=== PATIENT | male | born 1975 | race Caucasian/White ===

== ENCOUNTER 2016-11-23 17:26 | Inpatient (IN) ==
[2016-11-23] MEDS ORDERED: NS 1,000 ML IV ONE (18:04)
[2016-11-23] MEDS ORDERED: HUMULIN R IV ONE (18:14)
[2016-11-23] MEDS ORDERED: ZOFRAN IV ONE (18:14)
[2016-11-23 18:18] LABS: ALLEN TEST YES; BE -19.6 mmoll (-3.0-3.0); BLOOD TYPE ARTERIAL; DRAW SITE L RADIAL; METHB 1.5 % (0.0-1.5); O2(CT) 22.2 mL/dL (15.0-23.0); PCO2(98.6) 22 mmHg (35-45); PO2(98.6) 108 mmHg (60-100); SAMPLE BLOOD; SAO2 98.3 % (95.0-100.0); THB 16.4 g/dL (11.5-17.4)
[2016-11-23 18:19] LABS: BASO% 0.6 % (0.0-0.8); HEMATOCRIT 47.3 % (42.0-52.0); HEMOGLOBIN 16.4 g/dL (14.0-18.0); IMM GRAN# 0.77 X1000 (0.0-0.04); IMM GRAN% 2.8 % (0.0-0.5); LYMPH# 1.03 X1000 (1.2-3.4); LYMPH% 3.8 % (20.5-51.1); MANUAL DIFF NEEDED? NO; MCH 30.4 PG (27-31); MCHC 34.7 g/dL (33-37); MCV 87.8 FL (81-99); MONO# 2.41 X1000 (0.11-0.59); MONO% 8.8 % (1.7-9.3); MPV 10.5 FL (7.4-10.4); PLT 374 X1000 (130-400); RBC 5.39 XMIL (4.7-6.1)
[2016-11-23 18:20] LABS: MODALITY ROOM AIR; pH(98.6) 7.14 (7.35-7.45)
[2016-11-23 18:35] LABS: ACETONE SERUM MODERATE (NEGATIVE)
[2016-11-23 18:38] LABS: URINE CULTURE NEEDED? NO; URINE MICRO REVIEW NEEDED? NO; URINE SOURCE CLEAN CATCH
[2016-11-23 18:40] LABS: ALBUMIN 4.1 g/dL (3.5-5.0); ALKALINE PHOSPHATASE 119 U/L (32-122); BUN 37 mg/dL (8-22); CALCIUM 9.6 mg/dL (8.8-10.2); GOT 42 U/L (10-34); GPT 29 U/L (10-44); TOTAL BILIRUBIN 0.59 mg/dL (0.20-1.00); TOTAL PROTEIN 7.7 g/dL (6.3-8.3)
[2016-11-23 18:41] LABS: BILIRUBIN URINE NEGATIVE (NEGATIVE); BLOOD URINE NEGATIVE (NEGATIVE); COLOR YELLOW; GLUCOSE URINE >1000 mg/dL (NEGATIVE); LEUKOCYTES URINE NEGATIVE (NEGATIVE); NITRITE URINE NEGATIVE (NEGATIVE); PROTEIN URINE NEGATIVE (NEGATIVE); SP GRAVITY URINE 1.018; TURBIDITY URINE CLEAR (CLEAR); UR EPITHELIAL CELLS <10 /HPF (<10); URINE BACTERIA NEGATIVE /HPF; URINE RBC <10 /HPF (<10); URINE WBC <10 /HPF (<10); UROBILINOGEN URINE NORMAL (NORMAL)
[2016-11-23 18:50] LABS: AGAP 38; CHLORIDE 81 mmol/L (98-107); POTASSIUM 5.6 mmol/L (3.5-5.1); SODIUM 129 mmol/L (136-145); TCO2 10 mmol/L (25-35)
[2016-11-23 18:52] LABS: COSMO 296
--- NOTE | 2016-11-23 19:07 | PROVIDER DOCUMENTATION ---
This chart was entered by Ga Chen Scribe, acting as scribe for Travis Schuster PA. HPI-General Adult - General Chief Complaint: High Blood Sugar Stated Complaint: HYPERGLYCEMIA Time Seen by Provider: 11/23/16 18:00 Source: patient Allergies/Adverse Reactions: Patient Allergies Allergy/AdvReac Type Severity Reaction Status Date / Time No Known Allergies Allergy Verified 11/23/16 17:45 Home Medications: Home Medication List Medication Instructions Recorded Confirmed Last Taken Type Insulin Glargine [Lantus] 30 unit SUBQ BID #3 insuln.pen 04/11/15 11/23/1611/22 Rx Hydrocodone/APAP 10 mg/325 mg 0 each PO DIRECTED 09/04/16 11/23/16 09/04/16 06:30 History [Addison-10] Insulin Aspart [Novolog Flexpen] 0 unit SQ DIRECTED 09/04/16 11/23/16 History Oxycodone HCl/Acetaminophen 1 each PO DIRECTED 09/04/16 11/23/16 11/23/16 History [Percocet 10-325 mg Tablet] - History of Present Illness -Gen Adult Nature of Presenting Problems: Pt is a 41 yom who presents to ER with CC of hyperglycemia. Pt reports that he started to feel nauseas yesterday and reports that he was unable to take his rx. Pt reports that he felt like her was hyperventilating and felt as though he was in DKA. On arrival, pt's blood glucose level was in the 600's. Location of Pain/Injury: reports: generalized Pain Radiation: reports: no radiation Quality of Pain: reports: other (DKA) Severity: reports: severe Onset/Duration: reports: 24 hours ago Timing: reports: still present Associated Symptoms: reports: loss of appetite, nausea, shortness of breath, other (hyperventilating). denies: anxiety, arm pain, back/neck pain, chest pain , constipation, cough, diaphoresis, diarrhea, dizziness, EENT symptoms, fatigue , fever/chills, genitourinary problems, headaches, heartburn, joint pain, malaise, muscle aches, sinus congestion/drainage, rash, seizure, sensory/motor loss, pain with inspiration, swelling/mass in abdomen, syncope, vomiting, weakness, trouble walking Similar Symptoms Previously?: No Recently seen or treated by another doctor?: No - Diabetes Related Context Context: reports: high blood sugar Review of Systems - Adult - REVIEW OF SYSTEMS - ADULT Constitutional: denies: chills, fever, fatique, night sweats, weight gain, weight loss Eyes: reports: no symptoms reported Ears, Nose, Mouth & Throat: reports: no symptoms reported Cardiovascular: reports: no symptoms reported Respiratory: reports: shortness of breath, other (hyperventilating). denies: chronic cough, cough, dyspnea on exertion, excessive sputum production, hemoptysis, pleurisy, wheezing Gastrointestinal: reports: nausea, poor appetite. denies: abdominal pain, hematemesis, constipation, diarrhea, difficulty swallowing, frequent heartburn, rectal bleeding, vomiting Genitourinary: reports: no symptoms reported Musculoskeletal: reports: no symptoms reported Integumentary: reports: no symptoms reported Neurological: reports: no symptoms reported Psychiatric: reports: no symptoms reported Endocrine: reports: no symptoms reported Hematologic/Lymphatic: reports: no symptoms reported Allergic/Immunologic: reports: no symptoms reported All Other Systems: Reviewed and Negative Past History - Adult - PAST MEDICAL HISTORY-ADULT Review of Records: reports: Nursing Assessment Review, Medications Reviewed Endocrine/Immune: reports: Diabetes - PRIOR SURGERIES/PROCEDURES Surgical/Procedure History: reports: orthopedic (extremity) - IMMUNIZATION STATUS Childhood Immunizations: UTD, See Nurse Assessment Flu Vaccine: See Nurse Assessment - FAMILY HISTORY Family History: reviewed, not pertinent Physical Exam-General - PHYSICAL EXAM-ADULT Initial Vital Signs Reviewed: Yes - CONSTITUTIONAL General Appearance: appears well, alert, moderate distress, anxious. negative: no apparent distress, mild distress - RESPIRATORY Respiratory: chest non-tender, lungs clear, normal breath sounds, no pleuratic chest pain, no respiratory distress, no accessory muscle use. negative: stridor , wheezing - CARDIOVASCULAR Cardiovascular: normal peripheral pulses, tachycardia. negative: regular rate, rhythm, irregularly irregular - GASTROINTESTINAL (ABDOMEN) Abdominal Exam: normal bowel sounds, non tender, soft, no organomegaly, no pulsatile mass. negative: abnormal bowel sounds, distended, tenderness - MUSCULOSKELETAL Back Exam: normal inspection, no CVA tenderness, no vertebral tenderness. negative: CVA tenderness, decreased range of motion, ecchymosis, muscle spasm, swelling, vertebral tenderness Extremity: normal range of motion, non-tender, normal gait, normal inspection, no pedal edema, no calf tenderness, normal capillary refill. negative: deformity, erythema, inflammation, pedal edema, swelling, tenderness - SKIN Integumentary: normal color, normal turgor, warm/dry. negative: abrasion(s), diaphoresis, ecchymosis, erythema, laceration(s), swelling, tenderness, warm - NEUROLOGIC Neurologic: psychology lecturer II-XII nml as tested, grossly normal, no motor/sensory deficits . negative: facial droop, focal weakness, motor weakness, sensory deficit - PSYCHIATRIC Psych/Mental Status: normal thought content, normal thought process, oriented x 3, anxious. negative: normal mood/affect Progress - PLAN OF CARE/RESULTS Progress/Plan/Lab Results: Vital Signs - 8 hr 11/23/16 17:40 Temperature 97.8 F Pulse Rate 120 H Respiratory Rate 23 Blood Pressure 133/70 O2 Sat by Pulse Oximetry 99 Laboratory Results - last 24 hr 11/23/16 11/23/16 11/23/16 17:47 17:47 18:08 WBC 27.35 H RBC 5.39 Hgb 16.4 Hct 47.3 MCV 87.8 MCH 30.4 MCHC 34.7 RDW Std Deviation 12.5 Plt Count 374 MPV 10.5 H Immature Gran % (Auto) 2.8 H Neut % (Auto) 84.0 H Lymph % (Auto) 3.8 L [place] % (Auto) 8.8 Eos % (Auto) 0.0 Baso % (Auto) 0.6 Immature Gran # (Auto) 0.77 H Neut # (Auto) 22.97 H Lymph # (Auto) 1.03 L [place] # (Auto) 2.41 H Eos # (Auto) 0.00 Baso # (Auto) 0.17 Specimen Type ARTERIAL Sample Site L RADIAL pH 7.14 L* pCO2 22 L pO2 108 H HCO3 9.6 L Base Excess -19.6 L Oxyhemoglobin 95.7 ABG O2 Sat (Calculated) 22.2 ABG O2 Saturation 98.3 ABG Carboxyhemoglobin 1.20 ABG Methemoglobin 1.5 Keo Test YES A-a O2 Difference 14.0 Total Hemoglobin 16.4 Lactate 5.20 H* Blood Gas Modality ROOM AIR FiO2 % 21.0 Sodium 129 L Potassium 5.6 H Chloride 81 L Carbon Dioxide 10 L Anion Gap 38 BUN 37 H Creatinine 1.7 H Estimated GFR/1.73 m2 44 BUN/Creatinine Ratio 22 Glucose 603 H* Calculated Osmolality 296 Calcium 9.6 Total Bilirubin 0.59 AST 42 H ALT 29 Alkaline Phosphatase 119 Total Protein 7.7 Albumin 4.1 Globulin 3.6 Albumin/Globulin Ratio 1.1 Urine Source Urine Color Urine Turbidity Urine pH Ur Specific [place] Urine Protein Ur Glucose (Stick) Ur Ketones (Stick) Urine Blood Urine Nitrite Urine Bilirubin Urobilinogen Dipstick Urine Leukocytes Urine WBC (Auto) Urine RBC (Auto) U Epithel Cells (Auto) Urine Bacteria (Auto) Acetone Level MODERATE A 11/23/16 18:33 WBC RBC Hgb Hct MCV MCH MCHC RDW Std Deviation Plt Count MPV Immature Gran % (Auto) Neut % (Auto) Lymph % (Auto) [place] % (Auto) Eos % (Auto) Baso % (Auto) Immature Gran # (Auto) Neut # (Auto) Lymph # (Auto) [place] # (Auto) Eos # (Auto) Baso # (Auto) Specimen Type Sample Site pH pCO2 pO2 HCO3 Base Excess Oxyhemoglobin ABG O2 Sat (Calculated) ABG O2 Saturation ABG Carboxyhemoglobin ABG Methemoglobin Keo Test A-a O2 Difference Total Hemoglobin Lactate Blood Gas Modality FiO2 % Sodium Potassium Chloride Carbon Dioxide Anion Gap BUN Creatinine Estimated GFR/1.73 m2 BUN/Creatinine Ratio Glucose Calculated Osmolality Calcium Total Bilirubin AST ALT Alkaline Phosphatase Total Protein Albumin Globulin Albumin/Globulin Ratio Urine Source CLEAN CATCH Urine Color YELLOW Urine Turbidity CLEAR Urine pH 5.0 Ur Specific [place] 1.018 Urine Protein NEGATIVE Ur Glucose (Stick) >1000 A Ur Ketones (Stick) 100 A Urine Blood NEGATIVE Urine Nitrite NEGATIVE Urine Bilirubin NEGATIVE Urobilinogen Dipstick NORMAL Urine Leukocytes NEGATIVE Urine WBC (Auto) <10 Urine RBC (Auto) <10 U Epithel Cells (Auto) <10 Urine Bacteria (Auto) NEGATIVE Acetone Level Orders Category Date Time Status Saline Loc NOW Care 11/23/16 18:04 Active ABG [RESP] Routine Lab 11/23/16 18:08 Completed ACETONE SERUM [CHEM] Stat Lab 11/23/16 17:47 Completed CBC WITH ELECTRONIC DIFF [HEME] Stat Lab 11/23/16 17:47 Completed COMPREHENSIVE METABOLIC PANEL [CHEM] Stat Lab 11/23/16 17:47 Completed URINALYSIS W/POSS RFLX CULT [URINALYSIS] Stat Lab 11/23/16 18:33 Completed 0.9% Sodium Chloride Inj [Ns] 1,000 ml Med 11/23/16 18:04 Active IV 999 mls/hr Insulin Human Regular [Humulin R] Med 11/23/16 18:14 Discontinued 10 unit IV NOW ONE Ondansetron [Zofran] Med 11/23/16 18:14 Discontinued 4 mg IV NOW ONE EKG [EKG] Stat Ther 11/23/16 17:43 Ordered Result Diagrams: 11/23/16 17:47 11/23/16 17:47 - CONSULTS/PCP/HOSPITALIST Notification #1 *Consult/PCP/Hospitalist*: Dr. Mann Time Discussed: 19:06 Consult Disposition: Admit Departure - Departure Time of Disposition Decision: 19:06 DIAGNOSIS: DKA (diabetic ketoacidoses) Qualifiers: Diabetes mellitus type: type 2 Diabetes mellitus complication detail: without coma Qualified Code(s): E13.10 - Other specified diabetes mellitus with ketoacidosis without coma Nausea & vomiting Qualifiers: Vomiting type: unspecified Vomiting Intractability: non-intractable Qualified Code(s): R11.2 - Nausea with vomiting, unspecified Disposition: ADMITTED INPATIENT 09 Certified Medical Emergency: Emergent Condition: Stable Referrals and Follow-Ups: None,PCP [Primary Care Provider] - Attestation - Physician/ VALE Attestation Patient care was provided by Advanced Practice Provider:: Yes Advanced Practice Provider:: Travis Schuster Advanced Practice Provider documentation review:: The Mid-level provider documentation, treatment plan and medical decision making was reviewed by the physician who agrees with all treatment and medical decision making by the MLP. The physician spent face to face time with patient:: Yes Advanced Practice Provider documentation review:: The physician spent face to face time with this patient and agrees with all MLP documentation, treatment, and medical decision making by the MLP. See provider notes for further information. This chart was documented by the indicated scribe, (Ga Chen Scribe) and accurately reflects the services I performed and decisions made by , Travis Schuster PA, as attested by the provider's signature.
[2016-11-23] MEDS: PERCOCET-10 PO PRN (19:52)
[2016-11-23] MEDS ORDERED: TYLENOL PO PRN ×2 (20:00→21:04)
[2016-11-23] MEDS ORDERED: SODIUM CHLORIDE 0.9% INJ PRN (20:00)
[2016-11-23] MEDS ORDERED: ZOFRAN IV PRN (20:00)
[2016-11-23] MEDS ORDERED: PHENERGAN IV PRN (20:00)
[2016-11-23] MEDS: NS 1,000 ML IV ONE ×3 (20:25→21:41)
[2016-11-23 20:41] LABS: URINE CULTURE NEEDED? NO; URINE MICRO REVIEW NEEDED? NO; URINE SOURCE CLEAN CATCH
[2016-11-23 20:44] LABS: UR EPITHELIAL CELLS <10 /HPF (<10); URINE BACTERIA NEGATIVE /HPF; URINE RBC <10 /HPF (<10); URINE WBC <10 /HPF (<10)
[2016-11-23 20:46] LABS: BILIRUBIN URINE NEGATIVE (NEGATIVE); BLOOD URINE NEGATIVE (NEGATIVE); COLOR YELLOW; GLUCOSE URINE >1000 mg/dL (NEGATIVE); LEUKOCYTES URINE NEGATIVE (NEGATIVE); NITRITE URINE NEGATIVE (NEGATIVE); PROTEIN URINE NEGATIVE (NEGATIVE); SP GRAVITY URINE 1.018; TURBIDITY URINE CLEAR (CLEAR); UROBILINOGEN URINE NORMAL (NORMAL)
[2016-11-23] MEDS ORDERED: MAGNESIUM SULFATE 2 GM/S.W.I. 2 GM/50 ML IVPB IV PRN (21:04)
[2016-11-23] MEDS ORDERED: D50W SYRINGE IV PRN (21:04)
[2016-11-23] MEDS ORDERED: D5 NS 1,000 ML IV SCH (21:04)
[2016-11-23] MEDS ORDERED: POTASSIUM CHLORIDE 40 MEQ in NS 250 ML IV PRN (21:04)
[2016-11-23] MEDS ORDERED: POTASSIUM CHLORIDE 20 MEQ in NS 100 ML IV PRN (21:04)
[2016-11-23] MEDS ORDERED: TYLENOL PR PRN (21:04)
[2016-11-23] MEDS ORDERED: KLOR-CON PO PRN ×2 (21:04)
[2016-11-23] MEDS ORDERED: HUMULIN R 100 UNIT in NS 99 ML IV SCH (21:04)
--- NOTE | 2016-11-23 21:16 | HISTORY AND PHYSICAL ---
CHIEF COMPLAINT: High blood sugar. PRIMARY CARE PROVIDER: An urgent care. He was unable to tell me a physician's name. HISTORY OF PRESENT ILLNESS: This is a 41-year-old male with a history of uncontrolled diabetes mellitus. He comes in today stating that he started feeling nauseated yesterday. Apparently, was unable to take his prescriptions and today started as if he were hyperventilating, thought he was going into DKA. On arrival to the ER, patient's blood glucose was in the 600s. PH, his ABG was 7.14. He will be admitted to ICU on DKA protocol. PAST MEDICAL HISTORY: 1. Diabetes mellitus type 1. 2. Chronic pain. 3. DKA. PREVIOUS SURGICAL HISTORY: Multiple back surgeries. SOCIAL HISTORY: Denies tobacco, alcohol or illicit drug use or abuse. FAMILY HISTORY: All 1st degree relatives have diabetes mellitus. Mother and father both had cardiac disease as well. ALLERGIES: No known drug allergies. MEDICATIONS: 1. Lantus 30 units subcutaneously b.i.d. 2. NovoLog FlexPen sliding scale. 3. Oxycodone 10 mg 1 p.o. as directed. 4. [place] 1 p.o. as directed. REVIEW OF SYSTEMS: Fourteen point review of systems conducted with the patient. He reported increased thirst, urination, diarrhea, nausea, vomiting, chronic back pain, denied chest pain, palpitations, fever, chills, weight gain, weight loss, cough, hematuria, hematochezia, melena. 14 point review of systems was conducted with the patient. All other systems were found to be negative. PHYSICAL EXAMINATION: VITAL SIGNS: Temperature 97.8 degrees, pulse 120, respirations 23, blood pressure 133/70. Oxygen saturation 99% on room air. GENERAL: A 41-year-old male lying in the ER stretcher, lethargic but answers all questions appropriately. Family at bedside. Oriented x3. HEENT: Head is atraumatic, normocephalic. Pupils equal, round, reactive to light. Extraocular eye movements intact. Sclerae is anicteric. Conjunctivae is pink. Oral mucosa is dry. NECK: Supple. No JVD. No thyromegaly. Trachea is midline. No cervical lymphadenopathy. CARDIAC: Regular rhythm. Sinus tachycardia on monitor. S1-S2 appreciated. No murmurs, gallops, rubs. LUNGS: Clear to auscultation bilaterally. No rhonchi, wheezes or rales. ABDOMEN: Soft, nondistended, nontender. Bowel sounds present in all 4 quadrants. Normoactive. No pulsatile mass. No organomegaly. EXTREMITIES: No clubbing, cyanosis, or edema. GENITOURINARY: Patient voids. We will place a Wooten catheter if needed for strict input and output. Otherwise deferred. NEUROLOGICAL: The patient is lethargic; however, answers all questions appropriately. He is oriented x3. Cranial nerves 2-12 are grossly intact. SKIN: Warm, dry and intact. No acute lesions or rash. DIAGNOSTIC DATA: Chest x-ray, no acute disease. LABORATORY DATA: WBC 27.35. Hemoglobin 16.3, hematocrit 47.3, platelet count 374,000. ABG: PH 7.14, pCO2 22. PO2 108. Bicarb 9.6, lactate 5.20, this was on room air. Sodium 129, potassium 5.6. Chloride 81. Carbon dioxide 10. BUN 37, creatinine 1.7. Glucose of 603. Urine greater than 1000 glucose. Ketones 100+. Acetone level moderate. ASSESSMENT AND PLAN: 1. Diabetic ketoacidosis. Fluid resuscitation was begun in the emergency room. Diabetic ketoacidosis protocol has been filled out of for further titration of fluids, treatment of electrolytes if indicated as well as titration of insulin drip. 2. Leukocytosis. This is possibly reactive; however, blood cultures were obtained along with urine culture and chest x-ray to rule out infectious etiology. We will not provide antibiotic coverage at this time. We will give fluid resuscitation and monitor. 3. Acute kidney injury. This is secondary to fluid volume depletion from diabetic ketoacidosis. Aggressive fluid bolusing was begun in the emergency room, will be continued in the intensive care unit. We will recheck laboratory data. Hopeful this will resolve. 4. Hyponatremia. This is again likely related to fluid volume depletion. We will rehydrate and recheck laboratory data. 5. Hyperkalemia. This will resolve as patient's blood sugar comes back into normal range. We will monitor laboratory data and replete potassium if needed. 6. Chronic pain. Continue patient's Percocet from home medications. 7. Nausea and vomiting. Zofran and Phenergan will be added as p.r.n. medications to patient's medication profile. Further recommendations per patient clinical course. Dictated by CARL Guillen for Wilber Mann MD cc: CARL Guillen MD
[2016-11-23 21:34] LABS: URINE CULTURE NEEDED? NO; URINE MICRO REVIEW NEEDED? NO; URINE SOURCE CATH
[2016-11-23 21:38] LABS: BILIRUBIN URINE NEGATIVE (NEGATIVE); BLOOD URINE NEGATIVE (NEGATIVE); COLOR YELLOW; GLUCOSE URINE >1000 mg/dL (NEGATIVE); LEUKOCYTES URINE NEGATIVE (NEGATIVE); NITRITE URINE NEGATIVE (NEGATIVE); PROTEIN URINE NEGATIVE (NEGATIVE); TURBIDITY URINE CLEAR (CLEAR); UR EPITHELIAL CELLS <10 /HPF (<10); URINE BACTERIA NEGATIVE /HPF; URINE RBC <10 /HPF (<10); URINE WBC <10 /HPF (<10); UROBILINOGEN URINE NORMAL (NORMAL)
[2016-11-23] MEDS: LOVENOX SUBQ SCH (21:39)
[2016-11-23] MEDS: PROTONIX IV SCH (21:39)
[2016-11-23] MEDS: NS 1,000 ML IV SCH ×2 (21:44→21:46)
[2016-11-23 21:47] LABS: UR AMPHETAMINES QUAL PRESUMPTIVE POSITIVE (NONE DETECT); UR BARBITUATES QUAL NONE DETECTED (NONE DETECT); UR BENZODIAZEPIN QUAL NONE DETECTED (NONE DETECT); UR CANNABINOIDS QUAL NONE DETECTED (NONE DETECT); UR COCAINE QUAL NONE DETECTED (NONE DETECT); UR METHADONE QUAL NONE DETECTED (NONE DETECT); UR OPIATES QUAL NONE DETECTED (NONE DETECT); UR OXYCODONE QUAL PRESUMPTIVE POSITIVE (NONE DETECT); UR PCP QUAL NONE DETECTED (NONE DETECT)
[2016-11-23 22:19] LABS: AMYLASE 27 U/L (20-200); CK PROFILE 35 U/L (24-204); LIPASE 8 U/L (13-60)
[2016-11-23 22:33] LABS: CALCIUM 8.6 mg/dL (8.8-10.2); MAGNESIUM 1.9 mg/dL (1.5-2.7); POTASSIUM 5.2 mmol/L (3.5-5.1)
[2016-11-23] MEDS: POTASSIUM CHLORIDE 10 MEQ in NS 1,000 ML IV SCH (23:00)
[2016-11-24] MEDS: NS 1,000 ML IV SCH (01:11)
[2016-11-24 02:36] LABS: ALLEN TEST YES; BE -8.2 mmoll (-3.0-3.0); BLOOD TYPE ARTERIAL; DRAW SITE R RADIAL; METHB 1.4 % (0.0-1.5); MODALITY ROOM AIR; O2(CT) 19.1 mL/dL (15.0-23.0); PCO2(98.6) 34 mmHg (35-45); PO2(98.6) 82 mmHg (60-100); SAMPLE BLOOD; SAO2 98.1 % (95.0-100.0); THB 14.2 g/dL (11.5-17.4); pH(98.6) 7.31 (7.35-7.45)
[2016-11-24 03:27] LABS: AGAP 20; BUN 35 mg/dL (8-22); CALCIUM 8.1 mg/dL (8.8-10.2); CHLORIDE 104 mmol/L (98-107); COSMO 299; MAGNESIUM 1.9 mg/dL (1.5-2.7); POTASSIUM 4.7 mmol/L (3.5-5.1); SODIUM 140 mmol/L (136-145); TCO2 16 mmol/L (25-35)
[2016-11-24] MEDS: PERCOCET-10 PO PRN ×4 (03:58→20:00)
[2016-11-24] MEDS: POTASSIUM CHLORIDE 10 MEQ in NS 1,000 ML IV SCH ×3 (04:38→13:20)
--- NOTE | 2016-11-24 05:51 | EKG Report ---
Test Performed on : 11/23/2016 5:35:25 PM Test Reason : Protocol/Re-Ordered Blood Pressure : / mmHG Vent. Rate : 120 BPM Atrial Rate : 120 BPM P-R Int : 138 ms QRS Dur : 082 ms QT Int : 328 ms P-R-T Axes : 068 075 068 degrees QTc Int : 463 ms Sinus tachycardia. Possible Left atrial enlargement Left ventricular hypertrophy Abnormal ECG No previous ECGs available Unconfirmed Result
[2016-11-24 06:29] LABS: AGAP 16; BUN 33 mg/dL (8-22); CHLORIDE 106 mmol/L (98-107); COSMO 298; MAGNESIUM 1.8 mg/dL (1.5-2.7); POTASSIUM 4.8 mmol/L (3.5-5.1); SODIUM 141 mmol/L (136-145); TCO2 19 mmol/L (25-35)
--- NOTE | 2016-11-24 06:31 | Diag Imaging Result Document ---
PROCEDURE NAME: CHEST-PORTABLE - 11/23/2016 PORTABLE CHEST: COMPARISON: Compared to 04/08/2015. FINDINGS: The lungs are well expanded. The heart is not enlarged. The vessels are not distended. No pneumonia. No pleural effusions identified. IMPRESSION: Stable chest.
[2016-11-24 10:06] LABS: ALLEN TEST YES; BE -3.9 mmoll (-3.0-3.0); BLOOD TYPE ARTERIAL; DRAW SITE R RADIAL; METHB 1.3 % (0.0-1.5); O2(CT) 17.4 mL/dL (15.0-23.0); PCO2(98.6) 36 mmHg (35-45); PO2(98.6) 80 mmHg (60-100); SAMPLE BLOOD; THB 12.9 g/dL (11.5-17.4); pH(98.6) 7.37 (7.35-7.45)
[2016-11-24 10:07] LABS: MODALITY ROOM AIR
[2016-11-24 10:24] LABS: AGAP 13; BUN 27 mg/dL (8-22); CALCIUM 7.9 mg/dL (8.8-10.2); CHLORIDE 107 mmol/L (98-107); COSMO 292; MAGNESIUM 1.8 mg/dL (1.5-2.7); SODIUM 140 mmol/L (136-145); TCO2 20 mmol/L (25-35)
[2016-11-24] MEDS ORDERED: LANTUS SUBQ ONE (13:47)
[2016-11-24] MEDS ORDERED: NEUTRA-PHOS PO ONE (13:54)
[2016-11-24] MEDS: 1/2 NS 1,000 ML IV SCH (14:32)
[2016-11-24] MEDS ORDERED: ORAJEL MAXIMUM ST 20% GEL TOP PRN (14:57)
[2016-11-24] MEDS ORDERED: VANCOMYCIN IV PER PHARMACY MISC SCH (15:00)
--- NOTE | 2016-11-24 15:54 | PROGRESS NOTE ---
DATE: 11/24/2016 SUBJECTIVE: The patient has no complaints. He denies having any abdominal pain. His blood sugars are running in the 200s and his anion gap appears to have closed. OBJECTIVE: Vital Signs: Temperature 96.8, blood pressure 113/63, heart rate 99 , respirations 12, O2 saturations 98% on room air. General: This is a middle-aged male lying in bed in no acute distress. Head: Normocephalic, atraumatic. Heart: S1, S2 normal. Regular rate and rhythm. Lungs: Clear to auscultation bilaterally. No wheezing. No rales. No rhonchi. Abdomen: Positive bowel sounds. Soft, nontender, nondistended. Extremities: No edema. No cyanosis. No calf tenderness. Neurologic: The patient is alert oriented x3. No focal neurologic deficits noted. LABS: Sodium 140, potassium 5, chloride 107, CO2 20, BUN 27, creatinine 1, glucose 235, phosphorus 2.5, magnesium 1.8. ASSESSMENT AND PLAN: 1. Diabetic ketoacidosis. Anion gap appears to have closed. We will start the patient on Lantus plus sliding scale insulin. Will also start the patient on a full liquid diet and monitor the blood sugars every 4 hours. The patient will need to be referred to primary care physician to continue to follow his blood sugars as outpatient. 2. Acute kidney injury. Resolved. Will switch the patient to half normal saline at 75 mL an hour. 3. Gastrointestinal prophylaxis. Continue on Protonix. 4. Deep vein thrombosis prophylaxis. Will continue on Lovenox. cc: Shirley Mcmanus MD MTDD
[2016-11-24] MEDS: HUMULIN R SUBQ SCH ×2 (16:00→20:01)
[2016-11-24] MEDS ORDERED: VANCOMYCIN 2,150 MG in NS 500 ML IV ONE (16:00)
[2016-11-24] MEDS: LOVENOX SUBQ SCH (20:00)
[2016-11-24] MEDS: SODIUM CHLORIDE 0.9% INJ SCH (20:00)
[2016-11-24] MEDS: PROTONIX IV SCH (20:00)
[2016-11-24] MEDS ORDERED: LANTUS SUBQ SCH (21:00)
[2016-11-25] MEDS: PERCOCET-10 PO PRN ×5 (01:01→20:18)
[2016-11-25] MEDS: 1/2 NS 1,000 ML IV SCH (04:23)
[2016-11-25] MEDS: VANCOMYCIN 1,850 MG in NS 500 ML IV SCH ×2 (04:24→16:30)
[2016-11-25 05:48] LABS: HEMATOCRIT 38.3 % (42.0-52.0); HEMOGLOBIN 13.1 g/dL (14.0-18.0); MCH 30.5 PG (27-31); MCHC 34.2 g/dL (33-37); MCV 89.1 FL (81-99); MPV 9.8 FL (7.4-10.4); RBC 4.3 XMIL (4.7-6.1)
[2016-11-25 05:58] LABS: AGAP 14; ALBUMIN 2.9 g/dL (3.5-5.0); BUN 12 mg/dL (8-22); CHLORIDE 103 mmol/L (98-107); COSMO 285; MAGNESIUM 1.7 mg/dL (1.5-2.7); POTASSIUM 3.9 mmol/L (3.5-5.1); SODIUM 140 mmol/L (136-145); TCO2 23 mmol/L (25-35)
[2016-11-25] MEDS: HUMULIN R SUBQ SCH ×4 (06:25→20:36)
[2016-11-25] MEDS: LANTUS SUBQ SCH ×2 (08:47→20:22)
--- NOTE | 2016-11-25 15:03 | PROGRESS NOTE ---
DATE: 11/25/2016 SUBJECTIVE: The patient is resting comfortably in bed. He has no complaints. OBJECTIVE: Vital Signs: Temperature 99 degrees, blood pressure 129/81, heart rate 85, respirations 24, O2 saturations 95% on room air. General: This is a middle-aged male, lying in bed, in no acute distress. Head: Normocephalic, atraumatic. Heart: S1, S2. Normal. Regular rate and rhythm. Lungs: Clear to auscultation bilaterally. No wheezes, no rales. No rhonchi. Abdomen: Positive bowel sounds. Soft, nontender, nondistended. Extremities: No edema. No cyanosis. No calf tenderness. Neurologic: The patient is alert and oriented x3. LABS: White blood cell count 16, hemoglobin 13, hematocrit 38, platelets 229,000. Sodium 140, potassium 3.9, BUN 12, creatinine 0.8, glucose 209, magnesium 1.7, phosphorus 1.6, calcium 8. ASSESSMENT AND PLAN: 1. Diabetic ketoacidosis. Resolved. 2. Uncontrolled insulin-dependent diabetes mellitus. Will continue on Levemir 35 units subcutaneous twice a day plus sliding scale insulin. 3. Acute kidney injury. Resolved. 4. Leukocytosis. The patient had 1 bottle of the blood culture that was positive, however this came back for coagulase-negative staph which is most likely a contaminant. The patient's white blood cell count is improving daily. We will continue to monitor this closely. 5. Gastrointestinal prophylaxis. Continue on Protonix. 6. Deep vein thrombosis prophylaxis. Continue on Lovenox. 7. The patient is stable for transfer to the medical floor. 8. Disposition. The patient should be stable for discharge home tomorrow. cc: Shirley Mcmanus MD
[2016-11-25] MEDS: NEUTRA-PHOS PO SCH ×2 (16:33→20:19)
[2016-11-25] MEDS: PROTONIX IV SCH (20:19)
[2016-11-25] MEDS: LOVENOX SUBQ SCH (20:19)
[2016-11-25] MEDS: SODIUM CHLORIDE 0.9% INJ SCH (20:19)
[2016-11-25] MEDS ORDERED: INSULIN PEN NEEDLES ONE (20:24)
[2016-11-26] MEDS: PERCOCET-10 PO PRN ×2 (01:02→06:34)
[2016-11-26 03:59] LABS: MANUAL DIFF NEEDED? NO
[2016-11-26 04:01] LABS: BASO% 0.9 % (0.0-0.8); HEMATOCRIT 44.8 % (42.0-52.0); HEMOGLOBIN 15.6 g/dL (14.0-18.0); IMM GRAN# 0.04 X1000 (0.0-0.04); IMM GRAN% 0.4 % (0.0-0.5); LYMPH# 1.71 X1000 (1.2-3.4); LYMPH% 17.1 % (20.5-51.1); MCHC 34.8 g/dL (33-37); MCV 88.9 FL (81-99); MONO# 1.09 X1000 (0.11-0.59); MONO% 10.9 % (1.7-9.3); MPV 9.9 FL (7.4-10.4); NEUT% 69.7 % (42.2-75.2); PLT 189 X1000 (130-400); RBC 5.04 XMIL (4.7-6.1)
[2016-11-26] MEDS: VANCOMYCIN 1,850 MG in NS 500 ML IV SCH (04:24)
[2016-11-26 05:46] VITALS: BP 173/89
[2016-11-26] MEDS: HUMULIN R SUBQ SCH (06:34)
[2016-11-26 06:53] LABS: AGAP 11; BUN 8 mg/dL (8-22); CALCIUM 9.4 mg/dL (8.8-10.2); CHLORIDE 97 mmol/L (98-107); COSMO 279; POTASSIUM 3.7 mmol/L (3.5-5.1); SODIUM 137 mmol/L (136-145); TCO2 29 mmol/L (25-35)
--- NOTE | 2016-11-27 09:28 | DISCHARGE SUMMARY ---
ADMISSION DATE: 11/23/2016 DISCHARGE DATE: 11/26/2016 FINAL DISCHARGE DIAGNOSIS 1. DKA 2. Acute kidney injury 3. Uncontrolled diabetes mellitus type 1 HOSPITAL COURSE: Mr. Alberts is a 41-year-old male with history of type 1 diabetes mellitus, chronic pain and other admissions for DKA. He came to the ED stating he was feeling nauseated and he was unable to take his prescriptions the day of or the day prior to his admission. He felt like he was hyperventilating and that he was going into DKA. In the ED his blood glucose was in the 600s, pH on his ABG was 7.14. Patient was admitted to the ICU on DKA protocol. The patient was able to get off his insulin drip. His anion gap was closed. He was started on Levemir plus sliding scale. He was advanced to a clear liquid diet. His acute kidney injury resolved. The patient was put in to be transferred to the floor over lack of beds. The patient was kept in the ICU. He is now appropriate for discharge home today. Vital signs, temperature is 97.6 degrees, heart rate 74, respirations 17, blood pressure 173/ 89, O2 is 97% on room air. DISCHARGE DIET: Diabetic. DISCHARGE MEDICATIONS: 1. [place] 10, 1 each p.o. as directed. 2. NovoLog flex Pen as per his sliding scale. 3. Lantus 35 units subcutaneous b.i.d. FOLLOW UP: Patient is being discharged home. He will need to follow up with his primary care physician, Dr. Millan. The patient can return to the ED for any worsening of symptoms. DISCHARGE TIME: 30 minutes. Dictated by CARL Silva for Shirley Mcmanus MD cc: Shirley Mcmanus MD MTDD
== END 2016-11-26 09:09 | disposition home or self-care (01) ==
LOC: ED 17:26 → ICU 19:54 → SUATTDRO 19:54 → ICU 20:20
PROVIDERS: ATTEND Internal Medicine

== ENCOUNTER 2017-04-19 13:04 | Inpatient (IN) ==
[2017-04-19] MEDS ORDERED: NS 1,000 ML IV ONE ×2 (14:14→15:27)
[2017-04-19] MEDS ORDERED: HUMULIN R IV ONE ×2 (14:20→18:55)
[2017-04-19] MEDS ORDERED: ZOFRAN IV ONE (14:20)
[2017-04-19 14:26] LABS: ACETONE SERUM SMALL (NEGATIVE)
[2017-04-19 14:34] LABS: BASO% 0.1 % (0.0-0.8); HEMATOCRIT 50.1 % (42.0-52.0); HEMOGLOBIN 17.4 g/dL (14.0-18.0); LYMPH% 4.4 % (20.5-51.1); MANUAL DIFF NEEDED? NO; MCH 29.5 PG (27-31); MCHC 34.7 g/dL (33-37); MCV 84.9 FL (81-99); MONO# 0.78 X1000 (0.11-0.59); MONO% 3.8 % (1.7-9.3); MPV 9.9 FL (7.4-10.4); NEUT% 90.7 % (42.2-75.2); PLT 372 X1000 (130-400)
[2017-04-19 14:48] LABS: ALLEN TEST YES; BE -11.5 mmoll (-3.0-3.0); BLOOD TYPE ARTERIAL; DRAW SITE R RADIAL; METHB 1.3 % (0.0-1.5); O2(CT) 23.4 mL/dL (15.0-23.0); PCO2(98.6) 25 mmHg (35-45); PO2(98.6) 99 mmHg (60-100); SAMPLE BLOOD; SAO2 98.7 % (95.0-100.0); THB 17.3 g/dL (11.5-17.4); pH(98.6) 7.31 (7.35-7.45)
[2017-04-19 14:50] LABS: MODALITY ROOM AIR
[2017-04-19 14:51] LABS: AGAP 38; ALKALINE PHOSPHATASE 131 U/L (32-122); BUN 39 mg/dL (8-22); CALCIUM 9.5 mg/dL (8.8-10.2); CHLORIDE 81 mmol/L (98-107); COSMO 301; GOT 18 U/L (10-34); GPT 37 U/L (10-44); POTASSIUM 5.4 mmol/L (3.5-5.1); SODIUM 132 mmol/L (136-145); TCO2 13 mmol/L (25-35); TOTAL BILIRUBIN 0.43 mg/dL (0.20-1.00); TOTAL PROTEIN 8.3 g/dL (6.3-8.3)
--- NOTE | 2017-04-19 14:57 | Diag Imaging Result Doc PS360 ---
CHEST-2 VIEWS - 04/19/2017 INDICATION: dka TECHNIQUE: COMPARISON: 11/23/2016 FINDINGS: The lungs are normally expanded and clear. Heart size and mediastinal contours are normal. No pneumothorax or pleural effusion. IMPRESSION: Negative exam. Electronically signed by Trever Tee 04/19/2017 2:55 PM
[2017-04-19 15:13] LABS: URINE CULTURE NEEDED? NO; URINE MICRO REVIEW NEEDED? NO; URINE SOURCE CLEAN CATCH
[2017-04-19 15:17] LABS: BILIRUBIN URINE NEGATIVE (NEGATIVE); BLOOD URINE NEGATIVE (NEGATIVE); COLOR YELLOW; GLUCOSE URINE >1000 mg/dL (NEGATIVE); LEUKOCYTES URINE NEGATIVE (NEGATIVE); NITRITE URINE NEGATIVE (NEGATIVE); PROTEIN URINE NEGATIVE (NEGATIVE); SP GRAVITY URINE 1.022; TURBIDITY URINE CLEAR (CLEAR); UROBILINOGEN URINE NORMAL (NORMAL)
[2017-04-19 15:18] LABS: UR EPITHELIAL CELLS <10 /HPF (<10); URINE BACTERIA NEGATIVE /HPF; URINE RBC <10 /HPF (<10); URINE WBC <10 /HPF (<10)
[2017-04-19] MEDS: HUMULIN R 100 UNIT in NS 100 ML IV SCH ×2 (15:30→18:22)
[2017-04-19] MEDS ORDERED: ZOFRAN IV PRN ×2 (17:02→18:55)
[2017-04-19] MEDS ORDERED: TYLENOL PO PRN ×2 (17:37→18:55)
[2017-04-19 17:56] LABS: MAGNESIUM 2.2 mg/dL (1.5-2.7)
[2017-04-19 17:57] LABS: HEMOGLOBIN A1C 9.3 % (4.8-6.0)
[2017-04-19 18:03] LABS: ALLEN TEST YES; BE -1.6 mmoll (-3.0-3.0); BLOOD TYPE ARTERIAL; DRAW SITE R RADIAL; METHB 1.2 % (0.0-1.5); O2(CT) 23.4 mL/dL (15.0-23.0); PCO2(98.6) 27 mmHg (35-45); PO2(98.6) 140 mmHg (60-100); SAMPLE BLOOD; THB 17.1 g/dL (11.5-17.4); pH(98.6) 7.48 (7.35-7.45)
[2017-04-19 18:04] LABS: MODALITY ROOM AIR
[2017-04-19] MEDS ORDERED: ZOFRAN PO PRN (18:42)
[2017-04-19] MEDS ORDERED: HUMULIN R 100 UNIT in NS 99 ML IV SCH (18:55)
[2017-04-19] MEDS ORDERED: COMPAZINE PR PRN (18:55)
[2017-04-19] MEDS ORDERED: COMPAZINE IV PRN (18:55)
[2017-04-19] MEDS ORDERED: D50W SYRINGE IV PRN (18:55)
[2017-04-19] MEDS ORDERED: MAGNESIUM SULFATE 2 GM/S.W.I. 2 GM/50 ML IVPB IV PRN (18:55)
[2017-04-19] MEDS ORDERED: SODIUM BICARBONATE 8.4% 50 MEQ in D5W 250 ML IV PRN (18:55)
[2017-04-19] MEDS ORDERED: SODIUM BICARBONATE 8.4% 100 MEQ in D5W 500 ML IV PRN (18:55)
[2017-04-19] MEDS ORDERED: POTASSIUM CHLORIDE 40 MEQ in NS 250 ML IV PRN (18:55)
[2017-04-19 19:15] LABS: UR AMPHETAMINES QUAL NONE DETECTED (NONE DETECT); UR BARBITUATES QUAL NONE DETECTED (NONE DETECT); UR BENZODIAZEPIN QUAL NONE DETECTED (NONE DETECT); UR CANNABINOIDS QUAL NONE DETECTED (NONE DETECT); UR COCAINE QUAL NONE DETECTED (NONE DETECT); UR METHADONE QUAL NONE DETECTED (NONE DETECT); UR OPIATES QUAL NONE DETECTED (NONE DETECT); UR OXYCODONE QUAL NONE DETECTED (NONE DETECT); UR PCP QUAL NONE DETECTED (NONE DETECT)
[2017-04-19] MEDS: D5 1/2 NS 1,000 ML IV SCH (20:51)
[2017-04-19 20:58] LABS: CALCIUM 9.4 mg/dL (8.8-10.2); POTASSIUM 4.2 mmol/L (3.5-5.1)
[2017-04-19] MEDS: NS 1,000 ML IV SCH ×3 (21:04→23:43)
[2017-04-19 21:12] LABS: MAGNESIUM 2.1 mg/dL (1.5-2.7)
[2017-04-19] MEDS ORDERED: POTASSIUM CHLORIDE 20 MEQ/SWI 20 MEQ/100 ML IVPB IV PRN (22:08)
[2017-04-19] MEDS: POTASSIUM CHLORIDE 20 MEQ in NS 100 ML IV PRN (22:40)
[2017-04-19 23:34] LABS: ALLEN TEST YES; BLOOD TYPE ARTERIAL; DRAW SITE R RADIAL; METHB 1.1 % (0.0-1.5); MODALITY ROOM AIR; O2(CT) 20.2 mL/dL (15.0-23.0); PCO2(98.6) 36 mmHg (35-45); PO2(98.6) 83 mmHg (60-100); SAMPLE BLOOD; SAO2 98.5 % (95.0-100.0)
[2017-04-20] MEDS: D5 1/2 NS 1,000 ML IV SCH ×2 (00:14→06:25)
[2017-04-20] MEDS: 1/2 NS 1,000 ML IV SCH ×4 (01:32→20:43)
[2017-04-20 02:30] LABS: AGAP 16; CHLORIDE 102 mmol/L (98-107); POTASSIUM 4.2 mmol/L (3.5-5.1); TCO2 22 mmol/L (25-35)
[2017-04-20 02:31] LABS: BUN 33 mg/dL (8-22); COSMO 290; MAGNESIUM 1.7 mg/dL (1.5-2.7); SODIUM 140 mmol/L (136-145)
[2017-04-20] MEDS: POTASSIUM CHLORIDE 20 MEQ in NS 100 ML IV PRN (03:18)
[2017-04-20 03:39] LABS: ALLEN TEST YES; BE 1.2 mmoll (-3.0-3.0); BLOOD TYPE ARTERIAL; DRAW SITE R RADIAL; MODALITY ROOM AIR; O2(CT) 18.7 mL/dL (15.0-23.0); PCO2(98.6) 44 mmHg (35-45); PO2(98.6) 80 mmHg (60-100); SAMPLE BLOOD; SAO2 97.8 % (95.0-100.0); THB 13.9 g/dL (11.5-17.4); pH(98.6) 7.39 (7.35-7.45)
[2017-04-20 04:39] LABS: HEMATOCRIT 38.8 % (42.0-52.0); HEMOGLOBIN 13.8 g/dL (14.0-18.0); IMM GRAN# 0.08 X1000 (0.0-0.04); IMM GRAN% 0.4 % (0.0-0.5); LYMPH# 1.34 X1000 (1.2-3.4); LYMPH% 6.4 % (20.5-51.1); MANUAL DIFF NEEDED? YES; MCH 30.2 PG (27-31); MCHC 35.6 g/dL (33-37); MCV 84.9 FL (81-99); MONO# 1.97 X1000 (0.11-0.59); MONO% 9.4 % (1.7-9.3); MPV 9.6 FL (7.4-10.4); NEUT% 83.8 % (42.2-75.2); PLT 268 X1000 (130-400); RBC 4.57 XMIL (4.7-6.1)
[2017-04-20 05:03] LABS: AGAP 14; BUN 31 mg/dL (8-22); CALCIUM 8.8 mg/dL (8.8-10.2); CHLORIDE 103 mmol/L (98-107); COSMO 293; MAGNESIUM 2.1 mg/dL (1.5-2.7); POTASSIUM 4.1 mmol/L (3.5-5.1); SODIUM 141 mmol/L (136-145); TCO2 24 mmol/L (25-35)
[2017-04-20 07:14] LABS: BANDS 2 % (0-1); LYMPHS 8 % (21-51); MONO 2 % (1-9)
[2017-04-20] MEDS: HUMULIN R 100 UNIT in NS 100 ML IV SCH (07:19)
[2017-04-20 08:11] LABS: AGAP 8; BUN 26 mg/dL (8-22); CALCIUM 9.1 mg/dL (8.8-10.2); CHLORIDE 103 mmol/L (98-107); COSMO 292; MAGNESIUM 2.3 mg/dL (1.5-2.7); POTASSIUM 3.7 mmol/L (3.5-5.1); SODIUM 140 mmol/L (136-145); TCO2 29 mmol/L (25-35)
[2017-04-20] MEDS: MORPHINE IV PRN ×4 (08:55→21:02)
[2017-04-20] MEDS: LANTUS SUBQ SCH ×2 (09:47→20:00)
[2017-04-20] MEDS ORDERED: INSULIN PEN NEEDLES ONE (09:47)
[2017-04-20] MEDS: HUMULIN R SUBQ SCH ×3 (11:53→20:00)
[2017-04-20] MEDS ORDERED: PEPCID PO ONE (17:58)
[2017-04-21 07:18] LABS: BASO% 0.1 % (0.0-0.8); EOS# 0.02 X1000 (0.0-0.7); EOS% 0.2 % (0.0-10.0); HEMATOCRIT 39.4 % (42.0-52.0); HEMOGLOBIN 13.4 g/dL (14.0-18.0); IMM GRAN# 0.02 X1000 (0.0-0.04); IMM GRAN% 0.2 % (0.0-0.5); LYMPH# 1.32 X1000 (1.2-3.4); LYMPH% 13.5 % (20.5-51.1); MANUAL DIFF NEEDED? NO; MCH 29.8 PG (27-31); MCV 87.6 FL (81-99); MONO# 1.04 X1000 (0.11-0.59); MONO% 10.6 % (1.7-9.3); MPV 9.9 FL (7.4-10.4); NEUT% 75.4 % (42.2-75.2); PLT 201 X1000 (130-400)
[2017-04-21 07:54] VITALS: BP 135/71
[2017-04-21 07:56] LABS: AGAP 10; BUN 9 mg/dL (8-22); CALCIUM 8.8 mg/dL (8.8-10.2); CHLORIDE 101 mmol/L (98-107); COSMO 277; POTASSIUM 3.6 mmol/L (3.5-5.1); SODIUM 140 mmol/L (136-145); TCO2 29 mmol/L (25-35)
[2017-04-21] MEDS ORDERED: PEPCID PO SCH (09:00)
[2017-04-21] MEDS ORDERED: NS 1,000 ML IV SCH (11:21)
[2017-04-21] MEDS ORDERED: PROTONIX IV SCH (11:30)
[2017-04-21] MEDS ORDERED: SODIUM CHLORIDE 0.9% INJ SCH (11:30)
[2017-04-21] MEDS ORDERED: LANTUS SUBQ SCH (11:30)
[2017-04-21] MEDS ORDERED: NEUTRA-PHOS PO SCH (13:00)
[2017-04-21] MEDS ORDERED: NS IV ONE (13:15)
[2017-04-21] MEDS ORDERED: SODIUM PHOSPHATE IV ONE (13:15)
[2017-04-21] MEDS ORDERED: TUMS EXTRA STRENGTH PO ONE (13:16)
[2017-04-21] MEDS ORDERED: NEUTRA-PHOS PO ONE (13:24)
[2017-04-21] MEDS ORDERED: HUMALOG SUBQ SCH (16:00)
== END 2017-04-21 17:19 | disposition home or self-care (01) ==
LOC: ED 13:04 → EDIPHOLD 16:43 → SUATTDRO 16:43 → ICU 18:29 → 3N 04-20 22:07
PROVIDERS: ATTEND Internal Medicine